=== PATIENT | female | born 1990 | race American Indian/Alaskan Native ===

== ENCOUNTER 2019-03-16 20:08 | Emergency (ER) | payer OTHER, BC ==
[2019-03-16 20:29] VITALS: BP 108/71
[2019-03-17 00:16] LABS: Basophils % (Auto) 0.3 % (0.0-1.8); Eosinophils # (Auto) 0.5 K/mm3 (0.0-0.4); Eosinophils % (Auto) 3.3 % (0.0-4.3); Hematocrit 33.9 % (30.3-42.9); Hemoglobin 11.5 gm/dl (10.1-14.3); Lymphocytes # (Auto) 3.3 K/mm3 (1.2-5.4); Lymphocytes % (Auto) 22.6 % (13.4-35.0); Mean Corpuscular HGB Conc 34 % (30-34); Mean Corpuscular Volume 96 fl (79-97); Monocytes # (Auto) 0.8 K/mm3 (0.0-0.8); Monocytes % (Auto) 5.6 % (0.0-7.3); Platelet Count 212 K/mm3 (140-440); Red Blood Count 3.55 M/mm3 (3.65-5.03)
--- NOTE | 2019-03-17 00:53 | Ultrasound Report ---
ULTRASOUND OBSTETRIC Indication: abdominal pain Findings: There is a single intrauterine . BPD = 2.9 cm = 15 weeks, 2 day(s). Head circumference = 11.3 cm = 15 weeks, 4 day(s). Abdominal circumference = 9.4 cm = 15 weeks, 4 day(s). Femur length = 1.9 cm = 15 weeks, 4 day(s). Overall estimated sonographic age = 15 weeks, 4 day(s). heart rate is 150 beats per minute. position is cephalic. Cervix appears closed. Measuring 3.3 cm Placenta is posterior and grade 0 . Amniotic fluid volume appears normal. Impression: 1. Single living intrauterine with estimated sonographic age of 15 weeks, 4 day(s). 2. No sonographic abnormality identified. Signer Name: Attila Villarreal MD Signed: 03/17/2019 12:48 AM Workstation Name: [id number]
[2019-03-17 01:25] LABS: Bacteria,Urine 1+ /HPF (Negative); Bilirubin,Urine NEG (Negative); Blood,Urine NEG (Negative); Color,Urine Colorless (Yellow); Protein,Urine <15 mg/dL mg/dL (Negative); Urobilinogen,Urine < 2.0 mg/dL (<2.0); WBC,Urine < 1.0 /HPF (0.0-6.0)
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
== END 2019-03-17 01:45 | disposition home or self-care (01) ==
LOC: ED 20:08
DX: O9A.212 Injury, poisoning and certain other consequences of external causes complicating pregnancy, second trimester (principal); S39.012A Strain of muscle, fascia and tendon of lower back, initial encounter; O26.892 Other specified pregnancy related conditions, second trimester; R10.30 Lower abdominal pain, unspecified; Z98.890 Other specified postprocedural states; Z3A.15 15 weeks gestation of pregnancy; V87.7XXA Person injured in collision between other specified motor vehicles (traffic), initial encounter; Y93.89 Activity, other specified; Y99.8 Other external cause status; Y92.410 Unspecified street and highway as the place of occurrence of the external cause
CPT/HCPCS: 36415; 76805; 81001; 84702; 85025